=== PATIENT | female | born 1980 | race Hispanic/Latino ===

== ENCOUNTER 2020-08-12 07:34 | Day surgery (SDC) | payer BC ==
[2020-08-10 15:06] VITALS: BMI 35.0
[2020-08-12] MEDS ORDERED: Levofloxacin 500 mg/D5W 100 ml Premix Bag ONE (07:45)
--- NOTE | 2020-08-12 07:56 | RAD ---
KUB: 08/12/2020 COMPARISON: 05/06/2009 HISTORY: Preoperative patient, renal stone disease FINDINGS: The prior exam demonstrated 3 calculi overlying the right renal shadow. On today's exam the re is a right double-J ureteral stent in place. There are clips in the pelvis suggesting prior tubal ligation. There are 2 calcifications along the course of the double-J ureteral stent, one withi n the pelvis just inferior to the sacroiliac joint measuring in the 3 mm range. This could represent a stone within the distal ureter or possibly vascular calcification. In addition, medial to the stent overlying the midportion of the right sacral ala is a 7 mm calcification which may be within the right ureter. An intrarenal calculus in the expected location of the right lower pole amando on measures 1.2 cm. The bowel gas pattern appears nonobstructed. No calcifications are apparent on the left IMPRESSION: 1.2 cm calcification in the right upper quadrant suggest a stone within the right kidney. 2 calcifications are seen along the course of the right double-J ureteral stent which could represent stones within the right ureter.
[2020-08-12] MEDS ORDERED: Fluconazole In NaCl,Iso-Osm 200 MG in Premix Bag 1 BAG IVPB SCH (08:00)
[2020-08-12] MEDS ORDERED: Rocuronium Bromide 10 MG/ML (10ML VIAL) ONE (08:51)
[2020-08-12] MEDS ORDERED: Glycopyrrolate 0.2 MG/ML 5 ML SYRINGE ONE (08:51)
[2020-08-12] MEDS ORDERED: Ondansetron PF 4 MG/2 ML Vial ONE (08:51)
[2020-08-12] MEDS ORDERED: Ketorolac Tromethamine 30 MG/ML VIAL ONE (08:51)
[2020-08-12] MEDS ORDERED: Lidocaine 1% PF 5 ML VIAL ONE (08:51)
[2020-08-12] MEDS ORDERED: Dexamethasone 20 MG/5 ML VIAL ONE (08:51)
[2020-08-12] MEDS ORDERED: PROPOFOL 200 MG/20 ML VIAL ONE (08:51)
[2020-08-12] MEDS ORDERED: Iothalamate Meglumine 60% 50 ML VIAL FS ONE (09:15)
[2020-08-12] MEDS ORDERED: Fentanyl 100 MCG/2 ML VIAL ONE (10:05)
[2020-08-12] MEDS ORDERED: Phenazopyridine HCl 100 MG TAB ONE ×2 (12:04)
[2020-08-12] MEDS ORDERED: Oxybutynin 5 MG TAB ONE (12:05)
--- NOTE | 2020-08-12 12:06 | RAD ---
EXAM: XR IVP Retrograde DATE: 08/12/2020 9:25 AM INDICATION: Right renal stent COMPARISON: KUB dated August 12, 2020 at 7:49 AM FINDIN images are submitted from a right-sided retrograde IVP. Submitted images demonstrate removal of the right ureteral stent previously seen. There is placement of a wire within the right renal collecting system and subsequent advancement of a catheter within the right ureter. Additional intraluminal instrumentation was then subsequently placed within the rig ht renal collecting system localizing to and inferior pole right renal stone. The final submitted image demonstrates removal of the stone. IMPRESSION:Right-sided IVP with right inferior pole renal stone removal. Transcribed Date/Time: 08/12/2020 1:26 PM
--- NOTE | 2020-08-13 11:51 | OP ---
DATE OF PROCEDURE: 08/12/2020 PCP: Dr. Hall at [facility]. PREOPERATIVE DIAGNOSES: 1. A 40-year-old female with history of diabetes, morbid obesity with history of Escherichia coli pansensitive pyelonephritis. 2. Large right 8-10mm mid ureteral calculi at the level of mid SI ureter(N20.1) 3. Large 1.1 cm right mid pole renal calculi(N20.0) 4. Morbid obesity. POSTOPERATIVE DIAGNOSES: 1. A 40-year-old female with history of diabetes, morbid obesity with history of Escherichia coli pansensitive pyelonephritis. 2. Large right 8-10mm mid ureteral calculi at the level of mid SI ureter. 3. Large 1.1 cm right mid pole renal calculi. 4. Morbid obesity. PROCEDURES PERFORMED: Cystoscopy, right 6 x 26 double-J ureteral stent exchange, rigid ureteroscopy, laser lithotripsy, basket extraction of mid ureteral calculi(modifier XS) flexible ureteroscopy, pyeloscopy, laser lithotripsy of large renal calculi(MOdifier XS), 6 x 26 double-J ureteral stent exchange. ANESTHESIA: General. COMPLICATIONS: None apparent. DISPOSITION: To recovery room in stable condition. SPECIMEN: Stone fragments for chemical analysis. INTRAOPERATIVE FINDINGS: 1. Large right mid ureteral calculi. 2. Large right mid pole renal calculi consistent with CT, very dense in nature. INDICATIONS FOR THE PROCEDURE AND HISTORY: Temi is a 40-year-old morbidly obese female with history of diabetes, presented with right flank pain, leukocytosis, found to have E coli pansensitive, UTI, pyelonephritis, underwent emergent stent placement. With appropriate targeted antibiotic therapy, her followup urine culture is negative and she presents today for ureteroscopy, laser lithotripsy. Risks and complications of the procedures have been discussed with the patient in detail including, but not limited to: Bleeding, pain, infection, injury to adjacent organs, [id number] injury, possible secondary procedure, urosepsis. All questions were answered to her satisfaction and she desired to proceed without reservation. DESCRIPTION OF PROCEDURE: After an informed consent was signed, the patient was taken to the operating room, placed in a dorsal lithotomy position with the genital area prepped and draped in the usual surgical sterile fashion. Bilateral JADE hose, SCDs, and broad-spectrum antibiotics were provided based on her previous urine culture. At this time, a 21-Omani cystoscope was utilized for cystoscopy and the previously placed ureteral stent was removed to the level of the meatus and a 0.035 Sensor wire was placed into the right upper pole. Although the preoperative KUB demonstrated a small nidus x2, this was not the obvious stone. Rigid ureteroscopy demonstrated a large stone nidus in the level of mid ureter. At the level of mid SI joint, there was a large mid pelvic phlebolith versus tubal ligation clip adjacent to this region, this is extra ureteral. Using a rigid ureteroscope and using 275 micron laser fiber, we laser lithotripsied the stone into multiple fragments. The stone was very dense and it was tedious to fragment the stone in the ureter. After successful fragmentation, multiple passes were required to render her ureter free of stone debris. We basket extracted some to be sent for chemical analysis. The residual was retrieved and extracted. After we cleared the ureter of multiple stone debris, a 10-Omani dual-lumen access sheath was placed into the right upper pole, and a second safety wire 0.035 Super Stiff was placed into the right upper pole. A 13/15-Omani by 28 cm navigator was passed without difficulty as she was passively dilated from a large obstructing stone and indwelling ureteral stent. At this time, with the navigator in place that was placed over the Super Stiff wire, we performed a flexible ureteroscopy. A large stone was seen in the right mid pole. Using 273 micron ball-tip fiber, we laser lithotripsied the stone into multiple dustlike stone debris. As this was more approachable in the renal collecting system, we laser lithotripsied the stone into multiple tiny stone debris. They were too small to basket extract and successful fragmentation was performed and the stones were unable to be visualized on fluoroscopy. The ureter was surveyed, which demonstrated no significant stone nidus of concern. A 6 x 26 double-J ureteral stent was passed over the guidewire and all wires were accounted for. The bladder was completely emptied and she tolerated the procedure well and transported to the recovery room in stable condition. As she presented with pyelonephritis, she will continue her targeted antibiotic therapy until followup appointment for cysto, stent pull. The patient was advised to obtain KUB one day prior. If no obvious stone debris of concern, we will proceed with cysto, stent pull in the office. Job ID: [id number] MTDD
[2020-08-19 20:36] LABS: CA Oxalate Dihydrate 30 % (.); CA Oxalate Monohydrate 70 % (.); Color Brown (.); Stone Weight 40 mg (.)
== END 2020-08-12 15:35 | disposition home or self-care (01) ==
LOC: SDC 07:34
PROVIDERS: ATTEND Urology
PROC: 0TC68ZZ Extirpation of Matter from Right Ureter, Via Natural or Artificial Opening Endoscopic (ICD-10-PCS; principal; 2020-08-12)
PROC: 0TC38ZZ Extirpation of Matter from Right Kidney Pelvis, Via Natural or Artificial Opening Endoscopic (ICD-10-PCS; principal; 2020-08-12)
PROC: 0T768DZ Dilation of Right Ureter with Intraluminal Device, Via Natural or Artificial Opening Endoscopic (ICD-10-PCS; principal; 2020-08-12)
DX: N20.2 Calculus of kidney with calculus of ureter (principal); E11.9 Type 2 diabetes mellitus without complications; K21.9 Gastro-esophageal reflux disease without esophagitis; E66.01 Morbid (severe) obesity due to excess calories; Z68.35 Body mass index [BMI] 35.0-35.9, adult; Z79.2 Long term (current) use of antibiotics; Z79.4 Long term (current) use of insulin
CPT/HCPCS: 74018; 74420; 82365; 88300; J1100; J1450; J1885; J1956; J2405; J2704; J3010

== ENCOUNTER 2020-08-26 08:37 | Outpatient (CLI) | payer BC ==
--- NOTE | 2020-08-26 10:13 | RAD ---
KUB: HISTORY: Ureteral calculus. COMPARISON: 08/12/2020 exam. FINDINGS: A right ureteral stent is in place. The calculus noted on the previous examination is significantly smaller in size on this exam only measuring 4-5 mm. I do not definitely appreciate the calculi that were seen on the previous exam along the course of the distal right ureteral stent. No left-sided ca lculi are seen. IMPRESSION: Right ureteral stent is in place. I do not definitely visualize any right ureteral calculi on this e xam. There is a small punctate lower pole right renal calculus seen. POS: [facility]
== END 2020-08-26 08:38 | disposition home or self-care (01) ==
LOC: BICRAD 08:37
PROVIDERS: ATTEND Urology
DX: N20.0 Calculus of kidney (principal); Z96.0 Presence of urogenital implants
CPT/HCPCS: 74018

== ENCOUNTER 2021-01-11 07:32 | Outpatient (CLI) | payer BC ==
[2021-01-11] MEDS ORDERED: Iopamidol-370 76% 500 ML 1 ML ONE (09:23)
== END 2021-01-11 07:33 | disposition home or self-care (01) ==
LOC: BICCT 07:32
PROVIDERS: ATTEND Urology
DX: N20.0 Calculus of kidney (principal); K80.20 Calculus of gallbladder without cholecystitis without obstruction; K57.30 Diverticulosis of large intestine without perforation or abscess without bleeding; K76.0 Fatty (change of) liver, not elsewhere classified; N28.89 Other specified disorders of kidney and ureter; N26.1 Atrophy of kidney (terminal)
CPT/HCPCS: 74178; Q9967